=== PATIENT | male | born 1975 | race Two or more races ===

== ENCOUNTER 2021-10-27 13:52 | Inpatient (IN) | payer OTHER ==
[2021-10-27 17:03] VITALS: BMI 27.6
[2021-10-27] MEDS ORDERED: MAGNESIUM CITRATE 300 ML BOTTLE PO PRN (17:38)
[2021-10-27] MEDS ORDERED: MAG HYDROX/AL HYDROX/SIMETH 30 ML UNIT-DOSE CUP PO PRN (17:38)
[2021-10-27] MEDS ORDERED: METHOCARBAMOL 500 MG TABLET PO PRN (17:38)
[2021-10-27] MEDS ORDERED: NICOTINE POLACRILEX 2 MG GUM BUC PRN (17:38)
[2021-10-27] MEDS ORDERED: ONDANSETRON *ODT* 4 MG TABLET SL PRN (17:38)
[2021-10-27] MEDS ORDERED: ACETAMINOPHEN 325 MG TABLET (FP) PO PRN ×2 (17:38)
[2021-10-27] MEDS ORDERED: BISMUTH SUBSALICYLATE 524 MG/30 ML PO PRN (17:38)
[2021-10-27] MEDS ORDERED: MENTHOL/PHENOL 1 EACH UD MM PRN (17:38)
[2021-10-27] MEDS ORDERED: MAGNESIUM HYDROX 2400MG/30ML ORAL SUSPENSION 30 ML CUP PO PRN (17:38)
[2021-10-27] MEDS ORDERED: IBUPROFEN 400 MG TABLET (FP) PO PRN (17:38)
[2021-10-27] MEDS: hydrOXYzine PAMOATE 25 MG CAPSULE (FP) PO PRN (20:42)
[2021-10-27] MEDS ORDERED: MELATONIN 5 MG TABLETS PO SCH (22:00)
[2021-10-27] MEDS ORDERED: THIAMINE HCL 100 MG TABLET (FP) PO SCH (22:00)
[2021-10-28] MEDS: hydrOXYzine PAMOATE 25 MG CAPSULE (FP) PO PRN (00:49)
[2021-10-28] MEDS ORDERED: PRENATAL VITAMINS W/ FOLIC ACID TABLET (FP) PO SCH (10:00)
[2021-10-28] MEDS ORDERED: cloNIDine HCL 0.1 MG TABLET PO PRN (10:34)
[2021-10-28] MEDS ORDERED: methaDONE HCL 10 MG TABLET (FOR DETOX USE ONLY) PO ONE (10:34)
[2021-10-28] MEDS ORDERED: diazePAM 5 MG TABLET PO PRN (10:34)
[2021-10-28 10:46] LABS: HEMATOCRIT 39.2 % (35.4-49); HEMOGLOBIN 13.1 GM/dL (11.7-16.9); MCH 29.1 pg (25.7-33.7); MCHC 33.5 g/dl (32.0-35.9); MEAN CELL VOLUME 87.1 fl (80-96); MEAN PLT VOLUME 7.1 fl (7.5-11.1); PLATELET COUNT 295 10^3/uL (134-434); RDW 12.8 % (11.9-15.9); WHITE BLOOD COUNT 4.3 K/mm3 (4.0-10.0)
[2021-10-28 10:48] LABS: CALCIUM 9.1 mg/dL (8.5-10.1)
[2021-10-28 10:52] LABS: CREATININE 0.8 mg/dL (0.55-1.3)
[2021-10-28 10:54] LABS: BILIRUBIN,TOTAL 0.5 mg/dL (0.2-1); TOT PROT 7.3 g/dl (6.4-8.2)
[2021-10-28 10:57] LABS: ALBUMIN 3.3 g/dl (3.4-5.0)
[2021-10-28] MEDS ORDERED: diazePAM 5 MG TABLET PO SCH (11:00)
[2021-10-28 13:18] VITALS: BP 118/75; PULSE 55; TEMP 97.3
[2021-10-30] MEDS ORDERED: diazePAM 5 MG TABLET PO SCH (06:00)
[2021-10-30] MEDS ORDERED: methaDONE HCL 10 MG TABLET (FOR DETOX USE ONLY) PO ONE (10:00)
[2021-10-31] MEDS ORDERED: diazePAM 5 MG TABLET PO SCH (06:00)
[2021-11-01] MEDS ORDERED: diazePAM 5 MG TABLET PO ONE (06:00)
[2021-11-01] MEDS ORDERED: methaDONE HCL 10 MG TABLET (FOR DETOX USE ONLY) PO ONE (10:00)
== END 2021-10-28 15:46 | disposition left against medical advice (07) | DRG 770 ==
LOC: YASAS 13:52 → UNDOADMIN 19:23 → Y3N 19:23
PROVIDERS: ADMIT Allergy & Immunology; ATTEND Allergy & Immunology
PROC: HZ2ZZZZ Detoxification Services for Substance Abuse Treatment (ICD-10-PCS; principal; 2021-10-27)
DX: F11.23 Opioid dependence with withdrawal (principal); F10.230 Alcohol dependence with withdrawal, uncomplicated; F14.20 Cocaine dependence, uncomplicated; F17.210 Nicotine dependence, cigarettes, uncomplicated; Z88.7 Allergy status to serum and vaccine
CPT/HCPCS: 36415; 80053; 85027; 86780; C9803-CS; Q0162; U0003; U0005